=== PATIENT | male | born 1980 | race Caucasian/White ===

== ENCOUNTER 2017-03-11 20:10 | Emergency (ER) | payer SELFPAY ==
[~2017-03-11] VITALS: Ht 157.5 cm; Wt 86.4 kg
[2017-03-11] MEDS ORDERED: METHOCARBAMOL 500 MG TABLET PO ONE (21:00)
[2017-03-11] MEDS: KETOROLAC TROMETHAMINE 30 MG/ML VIAL IM ONE ×2 (21:14→21:20)
[2017-03-11] MEDS ORDERED: IBUPROFEN 800 MG TABLET PO ONE (21:30)
[2017-03-11 21:55] VITALS: BP 138/85
== END 2017-03-11 22:23 | disposition home or self-care (01) ==
LOC: EMS 20:12
DX: S16.1XXA Strain of muscle, fascia and tendon at neck level, initial encounter (principal); X58.XXXA Exposure to other specified factors, initial encounter; Y93.89 Activity, other specified; Y92.89 Other specified places as the place of occurrence of the external cause; Y99.8 Other external cause status
CPT/HCPCS: 99283; J1885